=== PATIENT | female | born 1995 | race Two or more races ===

== ENCOUNTER 2024-11-15 22:25 | Emergency (ER) | payer MEDICAID, SELFPAY ==
[2024-11-15 22:26] VITALS: BP 109/73; PULSE 100; RESP 20; TEMP 37.1; O2SAT 98; BMI 28.3
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
[2024-11-15 23:47] LABS: Basophils % (Auto) 0 % (0-2.5); Eosinophils % (Auto) 0 % (0-10); Hematocrit 34.9 % (36.0-46.0); Immature Granulocytes % (Auto) 1 % (0-0); Immature Granulocytes Auto 0.08 Thou/mm3 (0.00-0.00); Lymphocytes # (Auto) 0.8 Thou/mm3 (1.0-4.8); Lymphocytes % (Auto) 6 % (10-50); Mean Corpuscular HGB Conc 34.4 g/dl (31.0-37.0); Mean Corpuscular Hemoglobin 28.8 pg (25.0-35.0); Mean Corpuscular Volume 84 fL (80-100); Monocytes % (Auto) 7 % (0-12); Neutrophils # (Auto) 11.3 Thou/mm3 (1.8-7.7); Neutrophils % (Auto) 86 % (37-80); Nucleated Red Blood Cell % 0 /100 WBC (0); Platelet Count 238 Thou/mm3 (140-440); RDW Standard Deviation 42.5 fL (36.4-46.3); Red Blood Count 4.16 Miln/mm3 (4.00-5.20); White Blood Count 13.2 Thou/mm3 (3.6-11.0)
[2024-11-15 23:55] LABS: Alanine Aminotransferase 19 U/L (10-49); Albumin, Serum 4.3 gm/dL (3.5-5.0); Albumin/Globulin Ratio 1.3 (1.2-2.2); Alkaline Phosphatase 87 U/L (46-116); Anion Gap 9 (7-16); Aspartate Amino Transferase 24 U/L (0-34); BUN/Creatinine Ratio 11 Ratio (12-20); Bilirubin,Total 1.2 mg/dL (0.3-1.2); Blood Urea Nitrogen 13 mg/dL (9-23); Calcium 8.9 mg/dL (8.3-10.6); Calcium (Corrected) 8.9 mg/dL (8.5-10.1); Carbon Dioxide 27.7 mMol/L (20.0-31.0); Chloride 97 mMol/L (98-107); Creatinine (Component) 1.2 mg/dL (0.6-1.3); Estimated Creatinine Clearance 62.1 mL/min (>60); Globulin 3.2 gm/dL (2.3-3.5); Glucose 139 mg/dL (74-106); Lipase 33 U/L (12-53); Osmolality,Calculated 270 (275-295); Potassium 3.4 mMol/L (3.4-5.1); Sodium 134 mMol/L (136-145); Total Protein 7.5 gm/dL (5.7-8.2); eGFR > 60 See Note
--- NOTE | 2024-11-16 01:01 | EKG_ITS ---
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
[2024-11-16 01:27] VITALS: BP 111/76; PULSE 89; RESP 16; TEMP 36.7; O2SAT 97
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
--- NOTE | 2024-11-16 01:41 | XR_ITS ---
Examination: PA and lateral chest 2 views TECHNIQUE: Upright PA lateral chest 2 views Date and time: November 16, 2024 0150 hours INDICATIONS: Right flank pain dysuria fever chills swelling nausea beginning 4 days ago FINDINGS: Normal heart size No pneumothorax. No pneumonia or pulmonary edema. Clavicles ribs and thoracic vertebral bodies appear intact IMPRESSION: No active disease
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
[2024-11-16 01:50] LABS: Collection Type, Urine Clean Catch
[2024-11-16 01:58] LABS: Bacteria,Urine 2+; Bilirubin,Urine Negative (Negative); Blood,Urine 2+ (Negative); Clarity,Urine Turbid (Clear/Hazy); Color,Urine Yellow (Lt Yel-Yel); Glucose, Urine Negative (Negative); Ketones,Urine Negative (Negative); Leukocyte Esterase,Urine Positive (Negative); Nitrite,Urine Negative (Negative); Protein,Urine Trace (Neg - Trace); RBC,Urine 21 /hpf (0-3); Specific Gravity,Urine 1.013 (1.001-1.035); Squamous Epithelial Cell,Urine 1 /hpf (0-5); Urobilinogen,Urine Negative mg/dL (0.0-1.0); WBC,Urine 263 /hpf (0-5)
[2024-11-16 02:04] LABS: HCG Qualitative,Urine Negative
[2024-11-16 02:07] LABS: Amphetamine/Methamp Scrn,U Negative (Negative); Barbiturate Screen,Urine Negative (Negative); Benzodiazepines Screen,Urine Negative (Negative); Benzoylecgonine Screen, Ur Positive (Negative); Fentanyl Screen,Urine Negative (Negative); Opiate Screen,Urine Negative (Negative); THC Screen,Urine Positive (Negative)
[2024-11-16 02:33] LABS: HCG,Qualitative Serum Negative
[2024-11-16 06:23] VITALS: BP 119/53; PULSE 89; RESP 16; TEMP 36.6; O2SAT 97
[2024-11-16] MEDS: cefTRIAXone/D5w 1gm IV premix 1 GM/50 ML BAG IV (06:24)
[2024-11-16] MEDS: KETOROLAC INJ 30 MG/ML VIAL 15 MG IVP (06:24)
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
[2024-11-16] MEDS: CIPROFLOXACIN HCL 250 MG TABLET 500 MG PO (08:14)
[2024-11-16 08:21] VITALS: BP 115/77; PULSE 90; RESP 16; TEMP 36.6; O2SAT 98
== END 2024-11-16 08:22 | disposition home or self-care (01) ==
PROVIDERS: Physician Assistant; Emergency Provider Emergency Medicine; PCP Family Medicine
DX: N39.0 Urinary tract infection, site not specified (principal); N85.4 Malposition of uterus; R07.81 Pleurodynia; I49.8 Other specified cardiac arrhythmias
CPT/HCPCS: 36415; 71046; 71100; 74177; 80053; 80307; 81001; 81025; 83690; 84703; 85025; 93005; 96365; 96375; 99284; A4649; J0696; J1885; Q9967; A9270

== ENCOUNTER 2025-04-24 18:28 | Emergency (ER) | payer MEDICAID, SELFPAY ==
[2025-04-24 19:25] VITALS: BP 119/70; PULSE 98; RESP 18; TEMP 36.8; O2SAT 98
--- NOTE | 2025-04-24 19:44 | XR_ITS ---
Examination: Abdomen sonogram, Limited Date and time of exam: April 24, 2025, 2026 hours INDICATIONS: Right upper abdominal pain after eating today Technique: Real-time mosley scale transabdominal sonographic images of the upper abdomen obtained. Findings: Contracted gallbladder Common bile duct 0.2 cm no stones Pancreatic head 3.0 cm Liver 13.3 cm fatty infiltration no focal liver lesions Normal hepatopetal portal venous flow Patent IVC IMPRESSION: Recommend repeating the gallbladder portion of the study with fasting
[2025-04-24 20:18] LABS: Basophils # (Auto) 0.1 Thou/mm3 (0.0-0.2); Basophils % (Auto) 1 % (0-2.5); Eosinophils # (Auto) 0.5 Thou/mm3 (0.0-0.5); Eosinophils % (Auto) 7 % (0-10); Hematocrit 34.8 % (36.0-46.0); Hemoglobin 11.2 g/dL (12.0-16.0); Immature Granulocytes Auto 0.02 Thou/mm3 (0.00-0.00); Lymphocytes # (Auto) 2.5 Thou/mm3 (1.0-4.8); Lymphocytes % (Auto) 33 % (10-50); Mean Corpuscular HGB Conc 32.2 g/dl (31.0-37.0); Mean Corpuscular Hemoglobin 28.1 pg (25.0-35.0); Mean Corpuscular Volume 87 fL (80-100); Monocytes # (Auto) 0.5 Thou/mm3 (0.0-0.8); Monocytes % (Auto) 7 % (0-12); Neutrophils # (Auto) 3.9 Thou/mm3 (1.8-7.7); Neutrophils % (Auto) 52 % (37-80); Nucleated Red Blood Cell # 0.00 Thou/mm3 (0.00-0.00); Nucleated Red Blood Cell % 0 /100 WBC (0); Platelet Count 327 Thou/mm3 (140-440); RDW Standard Deviation 42.4 fL (36.4-46.3); Red Blood Count 3.99 Miln/mm3 (4.00-5.20); White Blood Count 7.6 Thou/mm3 (3.6-11.0)
[2025-04-24 20:41] LABS: Alanine Aminotransferase 12 U/L (10-49); Albumin, Serum 4.2 gm/dL (3.5-5.0); Albumin/Globulin Ratio 1.5 (1.2-2.2); Alkaline Phosphatase 78 U/L (46-116); Anion Gap 9 (7-16); Aspartate Amino Transferase 17 U/L (0-34); BUN/Creatinine Ratio 18 Ratio (12-20); Bilirubin,Total 0.2 mg/dL (0.3-1.2); Blood Urea Nitrogen 16 mg/dL (9-23); Calcium 9.4 mg/dL (8.3-10.6); Calcium (Corrected) 9.4 mg/dL (8.5-10.1); Carbon Dioxide 27.7 mMol/L (20.0-31.0); Chloride 107 mMol/L (98-107); Creatinine (Component) 0.9 mg/dL (0.6-1.3); Globulin 2.8 gm/dL (2.3-3.5); Glucose 94 mg/dL (74-106); Lipase 45 U/L (12-53); Osmolality,Calculated 288 (275-295); Potassium 4.3 mMol/L (3.4-5.1); Sodium 144 mMol/L (136-145); Total Protein 7.0 gm/dL (5.7-8.2); eGFR > 60 See Note
[2025-04-24 21:59] LABS: Collection Type, Urine Clean Catch
[2025-04-24 22:05] LABS: Bilirubin,Urine Negative (Negative); Blood,Urine Negative (Negative); Clarity,Urine Clear (Clear/Hazy); Color,Urine Lt-Yellow (Lt Yel-Yel); Glucose, Urine Negative (Negative); HCG Qualitative,Urine Negative; Ketones,Urine Negative (Negative); Leukocyte Esterase,Urine Negative (Negative); Nitrite,Urine Negative (Negative); PH,Urine 7.5 (5.0-7.0); Protein,Urine Negative (Neg - Trace); RBC,Urine 1 /hpf (0-3); Specific Gravity,Urine 1.027 (1.001-1.035); Squamous Epithelial Cell,Urine 1 /hpf (0-5); Urobilinogen,Urine Negative mg/dL (0.0-1.0); WBC,Urine < 1 /hpf (0-5)
--- NOTE | 2025-04-24 22:11 | PD.EDABDPN ---
ED Abdominal Pain RME/HPI General Chief Complaint: Back Pain/Injury Stated complaint: BACK PAIN, UPPER ABD PAIN Time seen by provider: 04/24/25 18:35 Arrival date/time: 04/24/25 18:28 This is a case of 29 -year-old female with no medical history came in in the emergency room due to bilateral upper abdominal pain and epigastric pain burning in character radiating to the mid back associated with nausea vomiting for 2 days patient have history of acid reflux persistence of the symptoms this patient decided to sought consult here in the emergency room Limitations: no limitations Related Data Home Medications ?Medication ?Instructions ?Recorded ?Confirmed prenat.vits,emi,[id number] 1 tab PO QDAY 05/03/20 05/03/20 Previous Rx's ?Medication ?Instructions ?Recorded ibuprofen 800 mg tablet 800 mg PO Q8H PRN pain #30 tabs 05/04/20 ferrous sulfate 325 mg (65 mg 325 mg PO BID #90 tabs 05/05/20 iron) tablet acetaminophen 325 mg capsule 650 mg (2 x 325 mg) PO QID PRN 03/28/21 (Tylenol) fever or pain #30 caps ibuprofen 600 mg tablet 600 mg PO Q8H PRN fever or pain 03/28/21 #30 tabs ibuprofen 800 mg tablet 800 mg PO TID PRN pain #30 tabs 05/21/21 ondansetron 4 mg disintegrating 4 mg PO Q8H PRN nausea and 09/17/23 tablet vomiting #20 tabs hydrocodone 5 mg-acetaminophen 325 1 tab PO BID PRN pain #20 tabs 03/29/24 mg tablet ibuprofen 800 mg tablet (IBU) 800 mg PO TID PRN pain #30 tabs 03/29/24 ciprofloxacin HCl 500 mg tablet 500 mg PO BID UTI #20 tabs 11/16/24 famotidine 20 mg tablet (Pepcid) 20 mg PO BID 30 days #60 tabs 04/24/25 omeprazole 20 mg capsule,delayed 20 mg PO QDAY #30 caps 04/24/25 release ondansetron 4 mg disintegrating 4 mg PO Q8H #20 tabs 04/24/25 tablet Allergies Allergy/AdvReac Type Severity Reaction Status Date / Time No Known Allergies Allergy Verified 04/24/25 18:31 Review of Systems Review of Systems Systems Reviewed: All systems reviewed, normal except as documented Constitutional Constitutional: Reports system reviewed and no additional complaints, except as documented and Reports as per HPI ENT Ears, Nose, Mouth, and Throat: Denies dysphagia and Denies odynophagia Cardiovascular Cardiovascular: Reports system reviewed and no additional complaints, except as documented and Reports as per HPI Respiratory Respiratory: Reports system reviewed and no additional complaints, except as documented and Reports as per HPI Gastrointestinal Gastrointestinal: Reports system reviewed and no additional complaints, except as documented, Reports as per HPI, Reports abdominal pain, Denies belching, Denies bloating, Denies change in bowel habits, Denies change in stool character, Denies coffee ground emesis, Denies constipation, Denies cramping, Denies diarrhea, Denies dyspepsia, Denies dysphagia, Denies early satiety, Denies excessive flatus, Denies fecal incontinence, Denies hematemesis, Denies hematochezia, Denies loose stools, Denies melena, Reports nausea, Denies odynophagia, Denies tenesmus and Reports vomiting Musculoskeletal Musculoskeletal: Reports system reviewed and no additional complaints, except as documented and Reports as per HPI Neurologic Neurologic: Reports system reviewed and no additional complaints, except as documented and Reports as per HPI Past Medical History Past Medical History NEUROLOGIC: Negative Neurological Disorders CARDIAC: Negative Cardiac Disorders or Congestive Heart Failure RESPIRATORY: Positive Asthma; Negative Chronic Obstructive Pulmonary Disease (COPD), Bronchitis, Emphysema, Pneumonia, Cystic Fibrosis, Tuberculosis, Pulmonary Embolism, Pulmonary Edema or Sleep Apnea GASTROINTESTINAL: Negative Gastrointestinal Disorders, Hepatitis or Colorectal Cancer GENITOURINARY: Negative Genitourinary Disorders, Renal Disease or Prostate Cancer REPRODUCTIVE: Negative Breast Cancer or Testicular Cancer MUSCULOSKELETAL: Negative Musculoskeletal Disorders or Bone Cancer ENDOCRINE: Negative Endocrine Disorders, Diabetes Mellitus Type 1 or Diabetes Mellitus Type 2 HEMATOLOGIC: Negative Sickle Cell Disease PSYCHO/SOCIAL: Positive Depression, Anxiety and Self-Mutilation OTHER HISTORY: Negative Hospitalization, Autoimmune Disease, Down Syndrome, Developmental Delay, Shingles, Falls, Blood Transfusions, Blood Transfusion Reaction, Anesthesia Reactions, Organ Transplant, Chemotherapy, Radiation Therapy, Hyperbaric Therapy, MRSA, VRSA, Vancomycin-Resistant Enterococci, Human Immunodeficiency Virus (HIV), Chicken Pox, Measles, Mumps, Rubella (Faroese Measles), Pertussis, Clostridium Difficile, Cancer, Breast Cancer, Cervical Cancer, Colorectal Cancer, Lung Cancer, Ovarian Cancer, Prostate Cancer or Testicular Cancer Family History FAMILY HISTORY: Positive Family Respiratory Disorders, Family Gastrointestinal Problems and Family Cancer; Negative Family Psychiatric Problems, Family Cardiac Disorders, Family Surgery or Family Anesthesia Reaction Surgical History SURGICAL: Negative Cardiac Surgery, Ear Surgery, Abdominal Surgery, Nephrectomy, Joint Replacement, Neurologic Surgery, Mastectomy, Lumpectomy, Hysterectomy, Tubal Ligation, Section or Organ Transplant Social History SMOKING STATUS: Current some day smoker SUBSTANCE USE: marijuana ED Exam General Limitations: Present no limitations General appearance: Present alert, in no apparent distress and other Head Head exam: Present atraumatic, normocephalic and normal inspection Eye Eye exam: Present normal appearance, PERRL and EOMI ENT ENT exam: Present normal exam, normal oropharynx and mucous membranes moist Neck Neck exam: Present normal inspection, full ROM and trachea midline; Absent tenderness, meningismus, lymphadenopathy or thyromegaly Chest Chest inspection: Present normal inspection and symmetric chest wall rise; Absent tenderness Respiratory Respiratory exam: Present normal lung sounds bilaterally; Absent respiratory distress, wheezes, stridor, accessory muscle use or prolonged expiratory phase Cardiovascular Cardiovascular exam: Present regular rate, normal rhythm and normal heart sounds; Absent bradycardia, tachycardia, irregular rhythm, systolic murmur or diastolic murmur Abdominal Exam Abdominal exam: Present soft, tenderness (Mild tenderness on the right upper quadrant and epigastric area no CVA tenderness) and normal bowel sounds; Absent distention, guarding, rebound, rigidity, diminished bowel sounds, hyperactive bowel sounds, hypoactive bowel sounds, organomegaly, trauma, psoas sign, obturator sign, Walsh's sign, Rovsing's sign, tenderness at McBurney's Point or hernia Extremities Exam Extremities exam: Present normal inspection and full ROM Back Exam Back exam: Present normal inspection and full ROM; Absent tenderness, CVA tenderness (R), CVA tenderness (L), muscle spasm, paraspinal tenderness, vertebral tenderness, rashes, sciatic notch tenderness (R), sciatic notch tenderness (L), straight leg raise (R) or straight leg raise (L) Neurological Exam Neurological exam: Present alert, oriented X3, CN II-XII intact, normal gait and reflexes normal; Absent motor sensory deficit Psychiatric Psychiatric exam: Present normal affect and normal mood Skin Skin exam: Present warm, dry, intact, normal color and other (Excellent skin turgor) Course Quality Measures none Orders Category Date Time Status US gall bladder Stat Exams 04/24/25 19:44 Completed CBC Stat Lab 04/24/25 20:01 Completed Comprehensive Metabolic Panel Stat Lab 04/24/25 20:01 Completed HCG Qualitative,Urine Stat Lab 04/24/25 21:49 Completed Lipase Stat Lab 04/24/25 20:01 Completed Urinalysis Stat Lab 04/24/25 21:49 Completed Famotidine [Pepcid] Med 04/24/25 22:08 Discontinued 40 mg PO X1 ONE HYDROcodone*/APAP 5/325 [Alder 5/325] Med 04/24/25 22:08 Discontinued 1 tab PO X1 ONE Ondansetron Odt [Zofran Odt] Med 04/24/25 22:08 Discontinued 4 mg PO X1 ONE Vital Signs Vital signs: Vital Signs Temperature 98.2 F 04/24/25 19:25 Pulse Rate 98 04/24/25 19:25 Respiratory Rate 18 04/24/25 19:25 Blood Pressure 119/70 04/24/25 19:25 Pulse Oximetry (%) 98 04/24/25 19:25 Oxygen Delivery Method Room Air 04/24/25 19:25 Oxygen saturation is 98% in room air Abdominal Pain MDM MDM Narrative MDM Narrative:: This is a case of 29 -year-old female with no medical history came in in the emergency room due to bilateral upper abdominal pain and epigastric pain burning in character radiating to the mid back associated with nausea vomiting for 2 days patient have history of acid reflux persistence of the symptoms this patient decided to sought consult here in the emergency room physical examination patient is awake alert oriented not in distress nontoxic looking well-hydrated well nourished vital signs stable BP stable not tachycardic not tachypneic afebrile and nonhypoxic patient vital signs stable patient noted to have mild tenderness on the epigastric area and right upper abdomen no guarding no rebound no rigidity negative psoas negative straight or negative Rovsing's negative [place]'s negative Walsh sign negative CVA tenderness patient back exam is normal ROM intact neurovascular intact blood test showed no leukocytosis no anemia kidney and liver function is normal no electrolyte imbalance lipase is normal urinalysis is normal ultrasound of the gallbladder showed normal no gallstone but with fatty liver patient was given Alder Zofran and Pepcid here in the emergency room based on my physical examination and history no signs and symptoms of acute abdomen nor hypoxia nor dehydration nor sepsis patient symptoms suggestive of gastritis which I treated patient with Pepcid after 30 minutes patient was reassessed abdominal exam was resolved patient was advised to follow-up with PCP to be referred to senior java j2ee developer for gastritis and for her fatty liver for any recurrence persistent worsening symptoms or any emergent concern return to the emergency room immediately or call 911 modified diet and regular exercise is advised Patient was discharged with comfortable condition walking with stable gait. Patient verbalized no further complains explained diagnosis and answered patient question. Patient is comfortable with the proposed management plan including the need to follow up with his/her primary care physician and any specialist if applicable Discussed patient for any urgent condition or worsening sx, He/She needed to go to emergency room immediately or call 911. Patient acknowledge the responsibility to follow up as instructed and to monitor her/his symptoms. For any persistence of the symptoms for more than 3-5 days return precaution advised. Discussed the result of the test and was given printed discharge instruction Patient data External records reviewed:: [facility] previous records Clinical information provided by:: patient Social determinants that could affect healthcare access:: none Patient has the following chronic illnesses:: None How is presenting disease/condition affected by chronic disease/condition?: no chronic disease Evaluation data The following diagnostics were reviewed and interpreted by me:: lab results and radiology exam(s) Lab and/or radiology exams considered but not ordered:: Reviewed Interpretation Summary: Reviewed Medications / Prescriptions Medications or Prescriptions considered but not ordered:: Given Medication administrations:: Medication Administration History Discontinued Medications Hydrocodone Bitart/Acetaminophen (Hydrocodone/Apap 5/325 Tablet) 1 tab PO X1 ONE Stop: 04/24/25 22:09 Famotidine (Famotidine 20 Mg Tablet) 40 mg PO X1 ONE Stop: 04/24/25 22:09 Ondansetron HCl (Ondansetron Odt 4 Mg Tabrap) 4 mg PO X1 ONE; Protocol Stop: 04/24/25 22:09 Given Consultations Consultation(s) initiated? (list below): No Diagnosis Differential diagnosis abdominal pain: abdominal pain, constipation, gastroenteritis, pancreatitis and other (Gastritis cholelithiasis) Most likely diagnosis given after review of the tests above:: Gastritis fatty liver Admission Indicated Admission indicated?: not indicated Explain why admission is indicated or not indicated:: Not indicated Admission Request Was there a request for admission?: No Disposition Plan Disposition Plan: Discharge Discharge Attestation Discharge Attestation: The patient and all family members were given an opportunity to ask questions and understood the discharge instructions. Discharge instructions specifically effects, indications for sooner follow up or return to the emergency department, and the expected course of current diagnosis. Patient condition: Stable Discharge Plan Plan Patient Disposition: HOME (Self Care) Patient condition on transfer: Stable Prescriptions/Referrals Prescriptions/Med Rec: New famotidine [Pepcid] 20 mg tablet 20 mg PO BID 30 Days Qty: 60 0RF omeprazole 20 mg capsule,delayed release(DR/EC) 20 mg PO QDAY Qty: 30 0RF ondansetron 4 mg tablet,disintegrating 4 mg PO Q8H Qty: 20 0RF No Action prenat.vits,[id number] Tablet 1 tab PO QDAY ibuprofen 800 mg tablet 800 mg PO Q8H PRN (Reason: pain) Qty: 30 0RF ferrous sulfate 325 mg (65 mg iron) tablet 325 mg PO BID Qty: 90 0RF ibuprofen 600 mg tablet 600 mg PO Q8H PRN (Reason: fever or pain) Qty: 30 0RF acetaminophen [Tylenol] 325 mg capsule 650 mg PO QID PRN (Reason: fever or pain) Qty: 30 0RF ibuprofen 800 mg tablet 800 mg PO TID PRN (Reason: pain) Qty: 30 0RF ondansetron 4 mg tablet,disintegrating 4 mg PO Q8H PRN (Reason: nausea and vomiting) Qty: 20 0RF ibuprofen [IBU] 800 mg tablet 800 mg PO TID PRN (Reason: pain) Qty: 30 0RF hydrocodone-acetaminophen 5-325 mg tablet 1 tab PO BID MDD 4 PRN (Reason: pain) Qty: 20 0RF ciprofloxacin HCl 500 mg tablet 500 mg PO BID MDD 2 Qty: 20 0RF Referrals: Christopher Keith MD [Primary Care Provider, Family Practice] - In 1 week Problem List Clinical Impression: Abdominal pain, Gastritis, Fatty liver Patient/Caregiver Discharge Instructions Education Materials: Abdominal Pain, Nonalcoholic Fatty Liver ..., ED Gastritis (Adult) Additional Instructions: Up with your primary care physician in 2 days for reevaluation and to be referred to senior java j2ee developer for further evaluation and treatment of gastritis and fatty liver recurrence persistent worsening symptoms or any emergent concern call 911 or go to the nearest emergency room take your medication as directed keep hydrated Pedialyte Gatorade for hydration avoid skipping of meals avoid fatty fried high cholesterol food out avoid soda coffee alcohol avoid spicy food Print Language: Greenlandic Stand Alone Forms: Berta Award Info., Patient Portal Info Letter PA/INTERNAL GRINDING MACHINE OPERATOR Supervising Physician PA/INTERNAL GRINDING MACHINE OPERATOR Supervising Physician: Dr. Nunez
[2025-04-24] MEDS: ONDANSETRON ODT 4 MG TABRAP PO (22:19)
[2025-04-24] MEDS: HYDROcodone/APAP 5/325 TABLET 1 TAB PO (22:19)
[2025-04-24] MEDS: FAMOTIDINE 20 MG TABLET 40 MG PO (22:19)
== END 2025-04-24 22:24 | disposition home or self-care (01) ==
PROVIDERS: Nurse Practitioner Family; Emergency Provider Emergency Medicine; PCP Family Medicine
DX: K29.70 Gastritis, unspecified, without bleeding (principal); K76.0 Fatty (change of) liver, not elsewhere classified
CPT/HCPCS: 36415; 76705; 80053; 81001; 81025; 83690; 85025; 99283; Q0162; A9270